=== PATIENT | male | born 1995 | race Caucasian/White ===

== ENCOUNTER 2019-04-07 09:54 | Emergency (ER) | payer BC ==
[~2019-04-07] VITALS: Ht 188 cm; Wt 66.0 kg
[2019-04-07 10:13] VITALS: BP 96/63
== END 2019-04-07 11:02 | disposition home or self-care (01) ==
LOC: ED 10:56
DX: S46.811A Strain of other muscles, fascia and tendons at shoulder and upper arm level, right arm, initial encounter (principal); Z72.89 Other problems related to lifestyle; X58.XXXA Exposure to other specified factors, initial encounter; Y93.84 Activity, sleeping; Y92.098 Other place in other non-institutional residence as the place of occurrence of the external cause; Y99.8 Other external cause status
CPT/HCPCS: 99283